=== PATIENT | female | born 1985 | race Caucasian/White ===

== ENCOUNTER 2017-07-20 17:32 | Outpatient (CLI) | payer MEDICAID | END 2017-07-20 19:50 | disposition home or self-care (01) | LOC: OBT 17:32 → L-D 17:36 → OBT 19:50 | DX: O24.410 Gestational diabetes mellitus in pregnancy, diet controlled (principal); O36.8130 Decreased fetal movements, third trimester, not applicable or unspecified; Z3A.38 38 weeks gestation of pregnancy | CPT/HCPCS: 76815; 76818; 82962 ==

== ENCOUNTER 2017-07-29 13:00 | Outpatient (CLI) | payer MEDICAID ==
[2017-07-29] MEDS ORDERED: CARBOPROST 250 MCG INJ IM (14:00)
[2017-07-29] MEDS ORDERED: AMPICILLIN 2 GM/NS (PMX) 100 ML IV (14:00)
[2017-07-29] MEDS ORDERED: IBUPROFEN 600 MG TAB PO (14:00)
[2017-07-29] MEDS ORDERED: LIDOCAINE 1% (MPF) 30 ML INJ INJ (14:00)
[2017-07-29] MEDS ORDERED: METHYLERGONOVINE 0.2 MG INJ IM (14:00)
[2017-07-29] MEDS ORDERED: MISOPROSTOL 200 MCG TAB PR (14:00)
[2017-07-29] MEDS ORDERED: BUTORPHANOL 2 MG INJ IV (14:00)
[2017-07-29] MEDS ORDERED: OXYTOCIN 30 UNITS/LR 500 ML IV ×3 (14:00)
[2017-07-29] MEDS ORDERED: AMPICILLIN 1 GM/NS (PMX) 50 ML IV (18:00)
== END 2017-07-29 14:28 | disposition home or self-care (01) ==
LOC: OBT 13:00 → L-D 13:01 → OBT 13:49 → L-D 13:30 → OBT 14:28
DX: O26.893 Other specified pregnancy related conditions, third trimester (principal); R10.2 Pelvic and perineal pain; O24.419 Gestational diabetes mellitus in pregnancy, unspecified control; Z3A.39 39 weeks gestation of pregnancy
CPT/HCPCS: Z7500

== ENCOUNTER 2017-08-02 15:16 | Inpatient (IN) | payer MEDICAID ==
[2017-08-02] MEDS ORDERED: MISOPROSTOL 25 MCG CAPSULE PO (17:00)
[2017-08-02] MEDS ORDERED: AMPICILLIN 2 GM/NS (PMX) 100 ML IV (17:00)
[2017-08-02] MEDS ORDERED: MISOPROSTOL 200 MCG TAB PR (17:00)
[2017-08-02] MEDS ORDERED: LIDOCAINE 1% (MPF) 30 ML INJ INJ (17:00)
[2017-08-02] MEDS ORDERED: OXYTOCIN 30 UNITS/LR 500 ML IV ×2 (17:00)
[2017-08-02] MEDS ORDERED: CARBOPROST 250 MCG INJ IM (17:00)
[2017-08-02] MEDS: LACTATED RINGER'S 1,000 ML IV (18:24)
[2017-08-02 18:35] LABS: ADD MAN DIFF? NO
[2017-08-02 18:40] LABS: BASOPHILS % 0.3 % (0.0-2.0); EOSINOPHILS # 0.1 10^3/ul (0.0-0.5); EOSINOPHILS % 1.3 % (0.0-7.0); HEMATOCRIT 41.7 % (37.0-47.0); HEMOGLOBIN 14.7 g/dl (12.0-16.0); LYMPHOCYTES # 2.9 10^3/ul (0.8-2.9); LYMPHOCYTES % 27.4 % (15.0-51.0); MEAN CORPUSCULAR HEMOGLOBIN 32.2 pg (29.0-33.0); MEAN CORPUSCULAR HGB CONC 35.3 g/dl (32.0-37.0); MEAN CORPUSCULAR VOLUME 91.4 fl (82.0-101.0); MEAN PLATELET VOLUME 10.8 fl (7.4-10.4); MONOCYTE # 0.7 10^3/ul (0.3-0.9); MONOCYTES % 6.6 % (0.0-11.0); NEUTROPHIL # 6.8 10^3/ul (1.6-7.5); NEUTROPHILS % 64.1 % (39.0-77.0); PLATELET COUNT 190 10^3/UL (140-415); RED BLOOD COUNT 4.56 10^6/ul (4.20-5.40); RED CELL DISTRIBUTION WIDTH 13.2 % (11.5-14.5)
[2017-08-02 18:40] LABS: WHITE BLOOD COUNT 10.7 10^3/ul (4.8-10.8)
[2017-08-02 18:58] LABS: GLUCOSE 70 mg/dl (70-220)
[2017-08-02 19:02] LABS: PARTIAL THROMBOPLASTIN TIME 31.2 Sec (25.0-35.0); PROTIME 13.3 Sec (11.9-14.9)
[2017-08-02 19:29] LABS: HEPATITIS B SURFACE ANTIGEN NEGATIVE (NEGATIVE)
[2017-08-02] MEDS: DEXTROSE 5%-LR 1,000 ML IV (20:29)
[2017-08-02] MEDS ORDERED: AMPICILLIN 1 GM/NS (PMX) 50 ML IV (21:00)
[2017-08-02] MEDS: OXYTOCIN 30 UNITS/LR 500 ML IV (21:06)
[2017-08-03] MEDS: LACTATED RINGER'S 1,000 ML IV ×2 (00:56→08:40)
[2017-08-03] MEDS: BUTORPHANOL 2 MG INJ IV (04:12)
[2017-08-03] MEDS ORDERED: FENTAnyl 2MCG/ML-ROPIV 0.2% 100 ML (09:13)
[2017-08-03] MEDS ORDERED: DIPHENHYDRAMINE 50 MG INJ IV (09:30)
[2017-08-03] MEDS ORDERED: EPHEDrine SULFATE 50 MG/5 ML SYG IV (09:30)
[2017-08-03] MEDS ORDERED: FENTAnyl 2MCG/ML-ROPIV 0.2% 100 ML BAG EPI (09:30)
[2017-08-03] MEDS ORDERED: ONDANSETRON 4 MG INJ IV (09:30)
[2017-08-03] MEDS ORDERED: NALOXONE (0.4 MG/ML) INJ IV (09:30)
[2017-08-03] MEDS: OXYTOCIN 30 UNITS/LR 500 ML IV ×2 (10:01→15:24)
[2017-08-03] MEDS: METHYLERGONOVINE 0.2 MG INJ IM (11:10)
[2017-08-03] MEDS ORDERED: METHYLERGONOVINE 0.2 MG INJ IM (12:30)
[2017-08-03] MEDS ORDERED: CARBOPROST 250 MCG INJ IM (12:30)
[2017-08-03] MEDS ORDERED: SENNA/DOCUSATE NA (8.6MG/50MG) TAB PO (12:30)
[2017-08-03] MEDS ORDERED: MISOPROSTOL 200 MCG TAB PR (12:30)
[2017-08-03] MEDS ORDERED: ZOLPIDEM 5 MG TAB PO (12:30)
[2017-08-03] MEDS ORDERED: DIPHENHYDRAMINE 25 MG CAP PO (12:30)
[2017-08-03] MEDS: BENZOCAINE 20% 56 ML SPRAY TOP (13:03)
[2017-08-03] MEDS: WITCH HAZEL/GLYCERIN PAD PR (13:03)
[2017-08-03] MEDS: LANOLIN 7 GM TUBE TOP (13:03)
[2017-08-03] MEDS: IBUPROFEN 600 MG TAB PO ×2 (13:37→17:52)
[2017-08-03] MEDS: SENNA/DOCUSATE NA (8.6MG/50MG) TAB PO (21:26)
[2017-08-03 22:05] LABS: RAPID PLASMA REAGIN NONREACTIVE (NR)
[2017-08-04] MEDS: IBUPROFEN 600 MG TAB PO ×4 (04:33→17:55)
[2017-08-04] MEDS: SENNA/DOCUSATE NA (8.6MG/50MG) TAB PO (08:38)
[2017-08-04 08:46] LABS: ADD MAN DIFF? NO
[2017-08-04 09:01] LABS: BASOPHIL # 0.1 10^3/ul (0.0-0.1); BASOPHILS % 0.5 % (0.0-2.0); EOSINOPHILS # 0.1 10^3/ul (0.0-0.5); EOSINOPHILS % 0.9 % (0.0-7.0); HEMATOCRIT 37.6 % (37.0-47.0); LYMPHOCYTES # 3.1 10^3/ul (0.8-2.9); LYMPHOCYTES % 29.2 % (15.0-51.0); MEAN CORPUSCULAR HEMOGLOBIN 32.3 pg (29.0-33.0); MEAN CORPUSCULAR HGB CONC 34.6 g/dl (32.0-37.0); MEAN CORPUSCULAR VOLUME 93.5 fl (82.0-101.0); MONOCYTE # 0.8 10^3/ul (0.3-0.9); MONOCYTES % 7.7 % (0.0-11.0); NEUTROPHIL # 6.5 10^3/ul (1.6-7.5); PLATELET COUNT 184 10^3/UL (140-415); RED BLOOD COUNT 4.02 10^6/ul (4.20-5.40); RED CELL DISTRIBUTION WIDTH 13.3 % (11.5-14.5)
[2017-08-04 09:01] LABS: WHITE BLOOD COUNT 10.6 10^3/ul (4.8-10.8)
[2017-08-04 12:51] LABS: RUBELLA ANTIBODY - IGM <20.00 AU/mL
[2017-08-04] MEDS: OXYCODONE/ASPIRIN (4.88/325) TAB PO (13:25)
[2017-08-04] MEDS: INFLUENZA VIRUS VACCINE 0.5 ML SYG IM* (13:27)
[2017-08-04] MEDS: DIPHTH/TET/ACEL PERTUSS (ADULT) 0.5 ML VIAL IM* (20:54)
== END 2017-08-04 21:30 | disposition home or self-care (01) | DRG 775 ==
LOC: PP1 08-03 11:51 → OBT 15:16 → L-D 15:17 → PP1 08-03 21:00 → OBT 17:00 → L-D 17:01
PROVIDERS: Obstetrics & Gynecology
PROC: 10E0XZZ Delivery of Products of Conception, External Approach (ICD-10-PCS; principal; 2017-08-03)
PROC: 0HQ9XZZ Repair Perineum Skin, External Approach (ICD-10-PCS; 2017-08-03)
DX: O24.429 Gestational diabetes mellitus in childbirth, unspecified control (principal); O70.0 First degree perineal laceration during delivery; Z37.0 Single live birth; Z3A.40 40 weeks gestation of pregnancy
CPT/HCPCS: 62319; 76815; 76818; 82947; 82962; 85025; 85610; 85730; 86592; 86762; 86900; 86901; 87340; 90686; 90715